=== PATIENT | male | born 1990 | race Two or more races ===

== ENCOUNTER 2024-01-21 15:47 | Emergency (ER) | payer MEDICAID, SELFPAY ==
[2024-01-21 16:17] VITALS: BP 138/97; PULSE 114; RESP 22; TEMP 37.1; O2SAT 100
[2024-01-21 16:22] VITALS: BP 164/105; PULSE 127; O2SAT 98; BMI 24.6
--- NOTE | 2024-01-21 17:40 | ECG_ITS ---
Test Reason : ARRHYTHMIA Blood Pressure : / mmHG Vent. Rate : 101 BPM Atrial Rate : 101 BPM P-R Int : 142 ms QRS Dur : 082 ms QT Int : 326 ms P-R-T Axes : 049 -10 022 degrees QTc Int : 422 ms Sinus tachycardia Minimal voltage criteria for LVH, may be normal variant ( R in aVL ) Borderline ECG No previous ECGs available Referred By: Gilbert Alejandra Electronically Signed By:WILLARD BRAMBILA
[2024-01-21 18:00] VITALS: BP 120/85; PULSE 87; TEMP 37.5; O2SAT 100
[2024-01-21 18:09] LABS: MANUAL DIFF FLAG NO
[2024-01-21 18:15] LABS: Basophils Percent Auto 0.3 % (0-2); Eosinophils Absolute Auto 0.1 X10*3/uL (0.0-0.4); Eosinophils Percent Auto 0.5 % (0-4); Hematocrit 40.6 % (42.0-52.0); Hemoglobin 14.2 g/dl (14.0-18.0); Imm Gran Abs Auto 0.03 X10*3/uL (0.00-0.03); Imm Gran Pct Auto 0.3 % (0.0-0.4); Lymphocytes Absolute Auto 1.7 X10*3/uL (1.2-4.9); Lymphocytes Percent Auto 17.4 % (20-40); Mean Corpuscular Hemoglobin 28.7 pg (27.0-33.0); Mean Corpuscular Volume 82.2 fL (80.0-98.0); Mean Platelet Volume 9.5 fL (9.4-12.4); Monocytes Absolute Auto 0.6 X10*3/uL (0.1-1.2); Monocytes Percent Auto 5.6 % (2-11); Neutrophils Absolute Auto 7.6 x10*3/uL (2.0-8.3); Neutrophils Percent Auto 75.9 % (45-73); Platelet Count 370 X10*3/uL (160-400); Red Blood Count 4.94 X10*6/uL (4.60-5.80); Red Cell Distribution Width 12.5 % (11.0-16.0)
[2024-01-21 18:16] LABS: INTERNATIONAL NORM RATIO 1.1 (0.9-1.1); Prothrombin Time 12.8 SEC (11.1-13.3)
[2024-01-21 18:45] LABS: B Type Natriuretic Peptide < 10 pg/mL (<100)
[2024-01-21 18:47] LABS: Alanine Aminotransferase 41 U/L (0-40); Alkaline Phosphatase 68 U/L (39-117); Anion Gap 10 (12-20); Aspartate Amino Transferase 32 U/L (5-37); Bilirubin Total 0.6 mg/dL (0.0-1.0); Blood Urea Nitrogen 11 mg/dL (9-16); Calcium 10.2 mg/dL (8.4-10.2); Carbon Dioxide 29 mmol/L (22-29); Chloride 103 mmol/L (96-108); Creatinine Clr Calc Pharmacy 98.1; Estimated Glomerular Filt Rate > 60; Glucose Random 94 mg/dL (60-115); Magnesium 2.3 mg/dL (1.6-2.6); Potassium 4.1 mmol/L (3.3-5.1); Sodium 138 mmol/L (135-145); Total Protein 9.1 g/dL (6.5-8.0)
--- NOTE | 2024-01-21 18:47 | ED.ARRPALP ---
HPI - Arrhythmia/Palpitations General Chief Complaint: Arrhythmia/Palpitations Stated Complaint: Palpitations while driving, sinus tach Time Seen by Provider: 01/21/24 18:19 Source: patient and EMS Mode of arrival: EMS Limitations: no limitations History of Present Illness ED Provider: Bhavik Biswas PA-C HPI narrative: 33 y/o male with history of HTN who presents to the ER for evaluation of palpitations that started today at 3pm while he was driving. He was thinking about stress at the time; States that he recently had a friend who due to a heart attack. Described the palpitations as sensation of heart beating out of his chest. He reports SOB, tremors and back pain when his palpitations were present. Symptoms now resolved. Denies chest pain, headache, or vision changes. He recently got taken off of lisinopril and changed to HCTZ. Hx palpitations 1 month ago that also self resolved. MD complaint: heart racing and palpitations Onset (ago): hour(s) Duration: now resolved Severity: moderate Context: occurred during rest and change in medication Associated symptoms: shortness of breath and other (anxiety) Related Data Previous Rx's ?Medication ?Instructions ?Recorded lorazepam 1 mg tablet (Ativan) 1 mg PO TID PRN anxiety #20 tabs 01/25/24 Allergies Allergy/AdvReac Type Severity Reaction Status Date / Time No Known Allergies Allergy Verified 01/25/24 15:17 Review of Systems Review of Systems: Yes all other systems are reviewed and are negative Constitutional: Constitutional: Reports as per HPI Eyes: Eyes: Reports as per HPI ENT: Reports system reviewed and no additional complaints, except as documented Cardiovascular: Cardiovascular: Reports as per HPI Respiratory: Respiratory: Reports as per HPI Gastrointestinal: Gastrointestinal: Reports as per HPI Musculoskeletal: Musculoskeletal: Reports as per HPI Neurologic: Reports as per HPI Psychiatric: Psychiatric: Reports as per HPI [facility] Social History Social History Advance Directives: No Advance Directives Information Provided: No Do you have a plan to hurt others: No Plan Physical Exam Vital Signs: Vital Signs: Last Vital Signs Temp 98.6 F 01/21/24 20:10 Pulse 72 01/21/24 20:10 Resp 16 01/21/24 20:10 BP 118/84 01/21/24 20:10 Pulse Ox 99 01/21/24 20:10 O2 Del Method Room Air 01/21/24 20:10 BMI result Body Mass Index 24.6 Appearance: Alert. Oriented X3. No acute distress. Head: normocephalic, atraumatic. Eyes: Pupils equal, round and reactive to light. ENT: Pharynx normal. No tonsillar swelling or exudate. Neck: Normal inspection. Neck supple. CVS: Normal heart rate and rhythm. Pulses normal. Respiratory: No respiratory distress. Breath sounds normal. Abdomen: Soft and nontender. +BS x4 Skin: Skin warm and dry. Normal skin color. Normal skin turgor. No rashes. Extremities: No lower extremity edema. No joint swelling. Neuro/psych: Oriented X 3. No motor deficit. No sensory deficit. CN II-XII intact. Normal speech and cognition. Const: General: cooperative, healthy appearing, comfortable and no acute distress Orientation/consciousness: oriented to person, oriented to place and oriented to time HEENT: Head: Yes normal to inspection Ears: hearing grossly normal bilaterally Eyes: General: appearance normal, both eyes and all related structures Chest: Chest palpation & inspection: normal inspection of the chest Resp: Effort & Inspection: normal respiratory effort and able to speak in complete sentences Auscultation: clear to auscultation bilaterally Cardio: Jugular venous distension: no JVD Rate: regular rate Rhythm: regular rhythm Neuro: General: oriented to person, oriented to place and oriented to time Cognition (Neuro): normal cognition Medical Decision Making Medical Decision Making [facility] Narrative: 33 yo male with history of HTN presenting with palpitations. he is very anxious. presenting with tachycardia and mild HTN, recently changed from ACEI to HCTZ. could be dehydrated with diuresis however he appears euvolemic. ekg with sinus tachycardia. lab workup is unremarkable, including normal lytes and negative trop cxr clear VS improved without intervention he is very anxious and this is likely contributing factor to his palpitations. discussed results w/ patient and family. at this time stable for d/c home with outpatient follow up, treat anxiety. patient agrees w/ plan Differential Diagnosis Differential Diagnoses: The differential diagnosis associated with the presentation includes arrythmia (afib, aflutter, SVT, PVCs), anxiety, dehydration, electrolyte derangement Admission/Observation Consideration of admission/observation: Escalation of care including admission/observation considered initially tachycardic, hypertensive, considered obs Lab Data [facility] Lab Attestation statement: I reviewed the patient's lab results. very mild anemia, no metabolic derrangements 01/21/24 18:02 01/21/24 18:02 Labs: Lab Results 01/21/24 Range/Units 18:02 WBC 10.0 (4.8-10.8) X10*3/uL RBC 4.94 (4.60-5.80) X10*6/uL Hgb 14.2 (14.0-18.0) g/dl Hct 40.6 L (42.0-52.0) % MCV 82.2 (80.0-98.0) fL MCH 28.7 (27.0-33.0) pg MCHC 35.0 (31.0-36.0) g/dl RDW 12.5 (11.0-16.0) % Plt Count 370 (160-400) X10*3/uL MPV 9.5 (9.4-12.4) fL Immature Gran % (Auto) 0.3 (0.0-0.4) % Neut % (Auto) 75.9 H (45-73) % Lymph % (Auto) 17.4 L (20-40) % [place] % (Auto) 5.6 (2-11) % Eos % (Auto) 0.5 (0-4) % Baso % (Auto) 0.3 (0-2) % Lymph # (Auto) 1.7 (1.2-4.9) X10*3/uL [place] # (Auto) 0.6 (0.1-1.2) X10*3/uL Eos # (Auto) 0.1 (0.0-0.4) X10*3/uL Baso # (Auto) 0.0 (0.0-0.2) X10*3/uL Abs Immat Gran (auto) 0.03 (0.00-0.03) X10*3/uL Absolute Neuts (auto) 7.6 (2.0-8.3) x10*3/uL Absolute Nucleated RBC 0.000 (0.0-0.012) X10*3/uL Nucleated RBC % (auto) 0.0 (0.0-0.2) /100WBC PT 12.8 (11.1-13.3) SEC INR 1.1 (0.9-1.1) Sodium 138 (135-145) mmol/L Potassium 4.1 (3.3-5.1) mmol/L Chloride 103 (96-108) mmol/L Carbon Dioxide 29 (22-29) mmol/L Anion Gap 10 L (12-20) BUN 11 (9-16) mg/dL Creatinine 0.94 (0.5-1.4) mg/dL Estim Creat Clear Calc 98.1 Estimated GFR > 60 Random Glucose 94 (60-115) mg/dL Calcium 10.2 (8.4-10.2) mg/dL Magnesium 2.3 (1.6-2.6) mg/dL Total Bilirubin 0.6 (0.0-1.0) mg/dL AST 32 (5-37) U/L ALT 41 H (0-40) U/L Alkaline Phosphatase 68 (39-117) U/L Troponin I High Sens < 2.7 (<3.5-35.0) ng/L B-Natriuretic Peptide < 10 (<100) pg/mL Total Protein 9.1 H (6.5-8.0) g/dL Albumin 5.0 (3.5-5.0) g/dL TSH 1.23 (0.32-4.0) uIU/mL Independent Interpretation I performed an independent interpretation of an: EKG and Plain X-Ray Interpretation: cxr clear without infiltrate or effusion, agree w/ radiology read ekg w/ normal sinus rhythm, normal QRS, normal QTc, normal [place] interval, no PVCs Radiology Impression Discussion of test interpretation with radiology: I have reviewed the radiologist's reading. Radiologist Impression: EXAMINATION: XR CHEST 2 VIEW CLINICAL INFORMATION: High blood pressure, shortness of breath COMPARISON: None TECHNIQUE: PA and lateral views of the chest obtained. FINDINGS: The lungs are clear. There are no pleural effusions. The cardiomediastinal silhouette is normal. XR/XR chest 2V IMPRESSION: No acute cardiopulmonary disease. Independent Historian Clinical information obtained from an independent historian. History obtained from or confirmed by: Spouse Prescription Management I considered prescription management with: Other (anxiolytic) Chronic Conditions Patient?s care impacted by: Other (anxiety) Critical Care Time Critical Care Time Critical Care Time: No Discharge Plan Discharge Clinical Impression: Palpitations, Anxiety Patient Disposition: Home, Self-Care Instructions: Heart Palpitations (DC), Anxiety (ED) Additional Instructions: Your lab workup today, EKG were all normal and reassuring. Do your best to manage anxiety with deep breathing, meditation, calming exercises Make sure drinking plenty of fluids throughout the day, especially in this heat. Follow-up with your doctor. If you develop new or worsening symptoms call 911 or come back to the ER for further evaluation. Prescriptions: No Action lorazepam [Ativan] 1 mg tablet 1 mg PO TID PRN (Reason: anxiety) Qty: 20 0RF Interventions: ED Discharge Assessment Last Done: 01/21/24 20:10 Discharge Date/Time: 01/21/24 20:13 Print Language: Ukrainian
[2024-01-21 18:56] LABS: Troponin-I High Sensitivity < 2.7 ng/L (<3.5-35.0)
[2024-01-21 19:01] VITALS: BP 118/84; PULSE 72; RESP 16; TEMP 37; O2SAT 99
[2024-01-21 19:02] LABS: TSH reflex Free T4 1.23 uIU/mL (0.32-4.0)
--- NOTE | 2024-01-21 19:53 | PC.NURSE ---
This RN assumed pt care @ 1900. Pt sitting up in bed ca&ox4, speaking with provider. Pt's family at bedside. Plan of care ongoing.
[2024-01-21 20:10] VITALS: BP 118/84; PULSE 72; RESP 16; TEMP 37; O2SAT 99
== END 2024-01-21 20:13 | disposition home or self-care (01) ==
PROVIDERS: Physician Assistant; Emergency Provider Emergency Medicine; PCP Student in an Organized Health Care Education/Training Program
DX: R00.2 Palpitations (principal); F41.9 Anxiety disorder, unspecified; R06.02 Shortness of breath; Z79.899 Other long term (current) drug therapy
CPT/HCPCS: 36415; 80053; 83735; 83880; 84443; 84484; 85025; 85610; 93005; 99283; 99284

== ENCOUNTER → 2024-01-21 17:40 | Outpatient (BNV) | payer MEDICAID, SELFPAY | PROVIDERS: Emergency Provider Emergency Medicine; PCP Student in an Organized Health Care Education/Training Program; Visit Provider Internal Medicine | DX: R00.0 Tachycardia, unspecified (principal); R94.31 Abnormal electrocardiogram [ECG] [EKG] | CPT/HCPCS: 93010 ==

== ENCOUNTER 2024-01-25 14:17 | Emergency (ER) | payer MEDICAID, OTHER, SELFPAY ==
--- NOTE | ~2024-01-25 | XR_ITS ---
EXAMINATION: XR CHEST 2 VIEW CLINICAL INFORMATION: High blood pressure, shortness of breath COMPARISON: None TECHNIQUE: PA and lateral views of the chest obtained. FINDINGS: The lungs are clear. There are no pleural effusions. The cardiomediastinal silhouette is normal. XR/XR chest 2V IMPRESSION: No acute cardiopulmonary disease.
[2024-01-25 14:23] VITALS: BP 157/80; PULSE 95; O2SAT 99
[2024-01-25 15:14] VITALS: BP 147/91; PULSE 82; RESP 18; TEMP 36.7; O2SAT 98; BMI 23.6
--- NOTE | 2024-01-25 15:14 | ED.GENADULT ---
HPI - General Adult General Chief complaint: Anxiety Stated complaint: SOB,SWEATY LE PER EMS X 1 HR PER EMS Time Seen by Provider: 01/25/24 19:43 Source: patient, RN notes reviewed and old records reviewed Mode of arrival: ambulatory Limitations: no limitations History of Present Illness ED Provider: Josh COLVIN narrative: 33-year-old male past medical history significant for hypertension presents for evaluation of shortness of breath. Patient reports he was here a few days ago with palpitations that started while he was driving, he reports that he was over thinking and varus stress time. He reports that he recently had a friend who due to a heart attack about 1 month ago. The patient also reports that he was taken off lisinopril and changed to hydrochlorothiazide The patient states that his symptoms have been on and off especially with shortness of breath and he has felt really sweaty today He denies any active chest pain. Related Data Previous Rx's ?Medication ?Instructions ?Recorded lorazepam 1 mg tablet (Ativan) 1 mg PO TID PRN anxiety #20 tabs 01/25/24 Allergies Allergy/AdvReac Type Severity Reaction Status Date / Time No Known Allergies Allergy Verified 01/25/24 15:17 Review of Systems Constitutional: Constitutional: Denies body ache(s), Denies chills and Denies fever(s) Eyes: Eyes: Denies blurry vision ENT: Denies lip swelling Cardiovascular: Cardiovascular: Reports diaphoresis, Reports rapid heart rate, Reports lightheadedness, Reports palpitations and Reports dyspnea Respiratory: Respiratory: Denies cough and Reports dyspnea Gastrointestinal: Gastrointestinal: Denies abdominal pain, Denies nausea and Denies vomiting Musculoskeletal: Musculoskeletal: Denies back pain Integumentary/Breasts: Skin/Breast: Denies rash Psychiatric: Psychiatric: Reports anxiety, Reports panic attacks and Denies suicidal ideation Endocrine: Endocrine: Reports palpitations Allergic/Immunologic: Allergic/Immunologic: Denies lip swelling PMFSH Social History Social History Advance Directives: No Advance Directives Information Provided: No Do you have a plan to hurt others: No Plan Physical Exam ED Vital Signs: Vital Signs - 24 hr 01/25/24 15:14 01/25/24 18:56 01/25/24 19:42 Temperature 98.1 F 97.3 F Pulse Rate 82 97 81 Respiratory Rate 18 18 18 Blood Pressure 147/91 H 154/94 H 136/84 Pulse Oximetry 98 97 98 Oxygen Delivery Method Room Air Room Air Room Air 01/25/24 19:56 Temperature 97.3 F Pulse Rate 81 Respiratory Rate 18 Blood Pressure 136/84 Pulse Oximetry 98 Oxygen Delivery Method Room Air BMI result Body Mass Index 23.6 Const General: healthy appearing, comfortable, no acute distress, alert and awake Nutritional Appearance: well nourished Orientation/consciousness: patient oriented x3 HENMT Head: Yes normocephalic and Yes atraumatic Eyes Eyelids: Yes eyelids normal Conjunctivae: conjunctivae normal Sclerae: sclerae normal Corneas: corneas normal Pupils: Equal, round and reactive pupils present EOM: EOMs intact bilaterally Neck Neck: Yes full ROM Resp Effort & Inspection: normal respiratory effort, able to speak in complete sentences, no audible wheezes and not labored Auscultation: clear to auscultation bilaterally Cardio Rate: regular rate Rhythm: regular rhythm Skin General skin exam: elasticity normal Neuro General: patient oriented x3 Cranial nerves: Yes Equal, round and reactive pupils present and Yes Bilaterally intact EOM present Cognition (Neuro): normal cognition Extrem Other: Moving all extremities well without any obvious deformities Course Course Course Narrative: RME, this is a rapid medical exam performed by Johnny Moreno please refer to primary provider for complete H&P- 33-year-old male past medical history significant for hypertension, anxiety presents for evaluation of shortness of breath. His symptoms have been coming and going throughout the day. He was seen here 4 days ago for similar complaint. He was ultimately discharged home. He feels that his anxiety has not really bad and he does not take any medication for anxiety. He also reports decreased appetite and weakness. His symptoms have somewhat improved compared to arrival. Plan for labs, EKG, chest x-ray Reevaluation(s) Reevaluation #1: Patient approached the triage tested that he felt very anxious. I gave him a dose of Ativan and observed him for about 45 minutes to an hour. He states that his symptoms completely resolved after receiving Ativan. This is consistent with likely diagnosis of anxiety. Patient be discharged to follow-up as an outpatient and will be given a short course of Ativan until he can see his PCP. The patient does state that he has a PCP Time: 20:03 Medications Administered Discontinued Medications Generic Name Dose Route Start Last Admin Trade Name Freq PRN Reason Stop Dose Admin Lorazepam 1 mg 01/25/24 18:55 01/25/24 19:00 Lorazepam 1 Mg Tablet PO 01/25/24 18:56 1 mg ONCE ONE Administration Medical Decision Making Medical Decision Making [facility] Narrative: 33-year-old male presents for evaluation of palpitations and shortness of breath. His history is consistent with anxiety. I reviewed his workup from last Wednesday. He had a negative troponin, negative BNP, nonischemic EKG. Repeat EKG shows normal sinus rhythm with sinus arrhythmia. No ST changes, no ectopy. Patient's vital signs are within normal limits. Plan for repeat labs Differential Diagnosis Differential Diagnoses: The differential diagnosis associated with the presentation includes Anxiety Hyperthyroidism Panic disorder Arrhythmia SVT Lab Data [facility] Lab Attestation statement: I reviewed the patient's lab results. Mild leukocytosis to 11.0k. Hemoglobin within normal limits at 14.6, hematocrit just below normal at 41.8 of unclear etiology platelet count within normal limits, electrolytes within normal limits. 01/25/24 15:38 01/25/24 15:38 Labs: Lab Results 01/25/24 Range/Units 15:38 WBC 11.0 H (4.8-10.8) X10*3/uL RBC 5.10 (4.60-5.80) X10*6/uL Hgb 14.6 (14.0-18.0) g/dl Hct 41.8 L (42.0-52.0) % MCV 82.0 (80.0-98.0) fL MCH 28.6 (27.0-33.0) pg MCHC 34.9 (31.0-36.0) g/dl RDW 12.6 (11.0-16.0) % Plt Count 398 (160-400) X10*3/uL MPV 9.0 L (9.4-12.4) fL Immature Gran % (Auto) 0.4 (0.0-0.4) % Neut % (Auto) 77.2 H (45-73) % Lymph % (Auto) 17.6 L (20-40) % [place] % (Auto) 4.4 (2-11) % Eos % (Auto) 0.1 (0-4) % Baso % (Auto) 0.3 (0-2) % Lymph # (Auto) 1.9 (1.2-4.9) X10*3/uL [place] # (Auto) 0.5 (0.1-1.2) X10*3/uL Eos # (Auto) 0.0 (0.0-0.4) X10*3/uL Baso # (Auto) 0.0 (0.0-0.2) X10*3/uL Abs Immat Gran (auto) 0.04 H (0.00-0.03) X10*3/uL Absolute Neuts (auto) 8.5 H (2.0-8.3) x10*3/uL Absolute Nucleated RBC 0.000 (0.0-0.012) X10*3/uL Nucleated RBC % (auto) 0.0 (0.0-0.2) /100WBC PT 13.5 H (11.1-13.3) SEC INR 1.1 (0.9-1.1) Sodium 138 (135-145) mmol/L Potassium 4.4 (3.3-5.1) mmol/L Chloride 101 (96-108) mmol/L Carbon Dioxide 27 (22-29) mmol/L Anion Gap 14 (12-20) BUN 10 (9-16) mg/dL Creatinine 0.90 (0.5-1.4) mg/dL Estim Creat Clear Calc 102.5 Estimated GFR > 60 Random Glucose 111 (60-115) mg/dL Calcium 10.9 H D (8.4-10.2) mg/dL Total Bilirubin 0.6 (0.0-1.0) mg/dL AST 31 (5-37) U/L ALT 41 H (0-40) U/L Alkaline Phosphatase 75 (39-117) U/L Total Protein 9.3 H (6.5-8.0) g/dL Albumin 5.3 H (3.5-5.0) g/dL Lipase 34 (8-78) U/L TSH 1.24 (0.32-4.0) uIU/mL Independent Interpretation I performed an independent interpretation of an: EKG (Sinus rhythm with a rate of [address] changes or ectopy) Radiology Impression Discussion of test interpretation with radiology: I have reviewed the radiologist's reading. Radiologist Impression: XR/XR chest 2V IMPRESSION: No acute cardiopulmonary disease. Discharge Plan Discharge Clinical Impression: Acute anxiety, Panic disorder Patient Disposition: Home, Self-Care Instructions: Anxiety (ED) Additional Instructions: Your workup in the ER today was reassuring. I think your symptoms are likely related to anxiety Call your primary doctor in the morning to schedule follow-up In the meantime, you may use Ativan as needed for anxiety or panic attacks Return for new or worsening symptoms Prescriptions: New lorazepam [Ativan] 1 mg tablet 1 mg PO TID PRN (Reason: anxiety) Qty: 20 0RF Interventions: ED Discharge Assessment Last Done: 01/25/24 19:56 Discharge Date/Time: 01/25/24 19:57 Print Language: Armenian
--- NOTE | 2024-01-25 15:16 | ECG_ITS ---
Test Reason : PALPITATIONS Blood Pressure : / mmHG Vent. Rate : 075 BPM Atrial Rate : 075 BPM P-R Int : 126 ms QRS Dur : 078 ms QT Int : 356 ms P-R-T Axes : 041 -01 026 degrees QTc Int : 397 ms Normal sinus rhythm with sinus arrhythmia Minimal voltage criteria for LVH, may be normal variant ( R in aVL ) Borderline ECG When compared with ECG of 21-JAN-2024 16:29, No significant change was found Referred By: Stevie Moreno Electronically Signed By:Vish Merritt
[2024-01-25 15:42] LABS: MANUAL DIFF FLAG NO
[2024-01-25 15:45] LABS: Basophils Percent Auto 0.3 % (0-2); Eosinophils Percent Auto 0.1 % (0-4); Hematocrit 41.8 % (42.0-52.0); Hemoglobin 14.6 g/dl (14.0-18.0); Imm Gran Abs Auto 0.04 X10*3/uL (0.00-0.03); Imm Gran Pct Auto 0.4 % (0.0-0.4); Lymphocytes Absolute Auto 1.9 X10*3/uL (1.2-4.9); Lymphocytes Percent Auto 17.6 % (20-40); Mean Corpuscular HGB Conc 34.9 g/dl (31.0-36.0); Mean Corpuscular Hemoglobin 28.6 pg (27.0-33.0); Monocytes Absolute Auto 0.5 X10*3/uL (0.1-1.2); Monocytes Percent Auto 4.4 % (2-11); Neutrophils Absolute Auto 8.5 x10*3/uL (2.0-8.3); Neutrophils Percent Auto 77.2 % (45-73); Platelet Count 398 X10*3/uL (160-400); Red Cell Distribution Width 12.6 % (11.0-16.0)
[2024-01-25 15:50] LABS: INTERNATIONAL NORM RATIO 1.1 (0.9-1.1); Prothrombin Time 13.5 SEC (11.1-13.3)
[2024-01-25 15:58] LABS: Alanine Aminotransferase 41 U/L (0-40); Albumin Level 5.3 g/dL (3.5-5.0); Alkaline Phosphatase 75 U/L (39-117); Anion Gap 14 (12-20); Aspartate Amino Transferase 31 U/L (5-37); Bilirubin Total 0.6 mg/dL (0.0-1.0); Blood Urea Nitrogen 10 mg/dL (9-16); Calcium 10.9 mg/dL (8.4-10.2); Carbon Dioxide 27 mmol/L (22-29); Chloride 101 mmol/L (96-108); Creatinine Clr Calc Pharmacy 102.5; Estimated Glomerular Filt Rate > 60; Glucose Random 111 mg/dL (60-115); Lipase 34 U/L (8-78); Potassium 4.4 mmol/L (3.3-5.1); Sodium 138 mmol/L (135-145); Total Protein 9.3 g/dL (6.5-8.0)
[2024-01-25 16:21] LABS: TSH reflex Free T4 1.24 uIU/mL (0.32-4.0)
[2024-01-25 18:56] VITALS: BP 154/94; PULSE 97; RESP 18; TEMP 36.3; O2SAT 97
[2024-01-25] MEDS: LORazepam 1 MG TABLET PO (19:00)
[2024-01-25 19:42] VITALS: BP 136/84; PULSE 81; RESP 18; O2SAT 98
[2024-01-25 19:56] VITALS: BP 136/84; PULSE 81; RESP 18; TEMP 36.3; O2SAT 98
== END 2024-01-25 19:57 | disposition home or self-care (01) ==
PROVIDERS: Physician Assistant; Emergency Provider Emergency Medicine
DX: F41.0 Panic disorder [episodic paroxysmal anxiety] (principal); R06.02 Shortness of breath; R00.2 Palpitations
CPT/HCPCS: 36415; 71046; 80053; 83690; 84443; 85025; 85610; 93005; 99282; 99283

== ENCOUNTER → 2024-01-25 15:16 | Outpatient (BNV) | payer SELFPAY | PROVIDERS: Emergency Provider Emergency Medicine; Visit Provider Internal Medicine Cardiovascular Disease | DX: I49.9 Cardiac arrhythmia, unspecified (principal) | CPT/HCPCS: 93010 ==